=== PATIENT | male | born 2000 ===

== ENCOUNTER 2021-07-31 23:33 | Emergency (ER) | payer OTHER ==
[~2021-07-31] VITALS: Ht 180.3 cm; Wt 102.1 kg
[~2021-07-31 23:33] MED LIST: CLARITIN5 MG; NEXIUM2.5 MG; ZANTAC150 MG PO; ZOFRAN ODT4 MG/UDTAB PO
[2021-08-01] MEDS ORDERED: KETO10TA2 PO ×2 (02:00→02:01)
[2021-08-01] MEDS ORDERED: MUPIROCIN22 GM TOP ×2 (02:01)
[2021-08-01] MEDS ORDERED: CEPHALEXIN500 MG PO (02:01)
== END 2021-08-01 02:33 ==
LOC: ER 23:33
DX: L03.031 Cellulitis of right toe (principal)